=== PATIENT | female | born 1975 | race Caucasian/White ===

== ENCOUNTER 2023-01-30 09:09 | Emergency (ER) | payer OTHER, SELFPAY ==
[2023-01-30 09:17] VITALS: BP 144/91; PULSE 84; RESP 18; TEMP 36.4; O2SAT 97
--- NOTE | 2023-01-30 10:49 | ED.EYEPROB ---
HPI - Eye Problem General Chief complaint: Eye Problems Stated complaint: Blurry vision Time Seen by Provider: 01/30/23 10:25 Source: patient Mode of arrival: ambulatory Limitations: no limitations History of Present Illness HPI Narrative: This is a 47-year-old female who presents to the ED with chief concern of a possible stroke. She reports blurred vision intermittently for the past couple of years. She states in the last couple of days she has had headache of gradual onset. Reports it is located on both sides. She reports she has had some burning pains throughout the scalp as well. Denies LOC, head injury, trauma, nausea, vomiting, problems with ambulation, numbness, weakness. Patient states she is specifically here because she is afraid of having a stroke. Related Data Allergies Allergy/AdvReac Type Severity Reaction Status Date / Time latex Allergy Flushing Verified 01/30/23 09:11 Review of Systems Review of Systems: All systems as dictated in HPI Exam Narrative: GENERAL: Well-appearing, well-nourished, and in no acute distress. HEAD: Normocephalic, atraumatic. EYES: PERRLA and EOMI. ENT: Nares clear, no rhinorrhea or epistaxis. Mucous membranes moist. Oropharynx without tonsillar hypertrophy exudate or other lesions. NECK: Supple. No adenopathy or masses. CHEST: No respiratory distress. Clear to auscultation. No wheezes rales or rhonchi HEART: Regular rate and rhythm. No murmur heard. Normal peripheral pulses. ABDOMEN: Soft, nontender, nondistended, normal active bowel sounds. MSK: Normal range of motion. No edema. SKIN: Warm, dry, no rash. NEURO: Alert and oriented x3. No focal deficits. 5 out of 5 strength and sensation in the upper and lower extremities. Coordination intact. Normal finger-nose. Ambulatory without difficulty. Negative pronator drift. PSYCH: Normal mood and affect. Course Vital Signs Vital signs: Vital Signs Temperature 97.6 F 01/30/23 09:17 Pulse Rate 84 01/30/23 09:17 Respiratory Rate 18 01/30/23 09:17 Blood Pressure 144/91 H 01/30/23 09:17 Pulse Oximetry 97 01/30/23 09:17 Oxygen Delivery Room Air 01/30/23 09:17 Temperature 97.6 F 01/30/23 09:17 Pulse Rate 85 01/30/23 10:57 Respiratory Rate 20 01/30/23 10:57 Blood Pressure 140/88 01/30/23 10:57 Pulse Oximetry 100 01/30/23 10:57 Oxygen Delivery Room Air 01/30/23 09:17 MDM - Eye Problem MDM Narrative Medical decision making narrative: This is a 47-year-old female who presents to the ED with chief complaint of of blurred vision for the past 2 years and headache over the last couple of days. Vitals are normal. She is concerned because she was seen at the eye doctor recently who was concerned about her eye exam and told her that her blood pressure levels were at stroke levels. Her exam today is completely intact. Neurologic exam is fully normal. No concern for stroke. I discussed with the patient that her exam is normal and I do not feel that we need to gather imaging and she agrees with this plan. We also agreed to forego headache treatments as she would prefer to treat her headache at home. Symptoms and presentation consistent with her chronic decreasing visual acuity. Her problems seem to be more chronic in nature. Advised that she follow-up with PCP. She is recently moving from [place] and is trying to get in with a PCP now to adress BP. Referral given. Pt will be discharged in stable condition. Return precautions given and supportive measures discussed. Pt is understanding and agreeable with plan for discharge and follow-up with PCP. Discharge Plan Discharge Clinical Impression: Decreased visual acuity Patient Disposition: Home, Self-Care Condition: Stable Instructions: Antibiotic Form Additional Instructions: Your neurologic exam was fully intact today. It is important that you follow-up with your family doctor regarding potential problems with blood rodriguez
[2023-01-30 10:57] VITALS: BP 140/88; PULSE 85; RESP 20; O2SAT 100
== END 2023-01-30 10:58 | disposition home or self-care (01) ==
PROVIDERS: Emergency Provider Physician Assistant
DX: H53.8 Other visual disturbances (principal)
CPT/HCPCS: 99282

== ENCOUNTER 2023-02-10 10:06 | Outpatient (CLI) | payer OTHER, SELFPAY ==
[2023-02-10 11:39] LABS: Basophils Absolute Auto 0.1 K/mm3 (0.0-0.1); Basophils Percent Auto 0.7 % (0.2-1.2); Eosinophils Absolute Auto 0.3 K/mm3 (0-0.3); Eosinophils Percent Auto 2.3 % (0-4.4); Hematocrit 44.4 % (37.0-47.0); Hemoglobin 14.1 g/dL (12.0-15.0); Immature Granulocyte Absolute 0.06 K/mm3 (0.00-0.031); Immature Granulocyte Percent A 0.5 % (0-0.5); Lymphocytes Absolute Auto 2.67 K/mm3 (0.9-3.2); Lymphocytes Percent Auto 21.8 % (18.3-44.2); Mean Corpuscular HGB Conc 31.8 g/dl (32-36); Mean Corpuscular Hemoglobin 28.8 pg (26-34); Mean Corpuscular Volume 90.8 fl (80-100); Mean Platelet Volume 10.9 fl (7.4-10.4); Monocytes Absolute Auto 0.8 K/mm3 (0.1-0.6); Monocytes Percent Auto 6.4 % (2.6-8.5); Neutrophils Absolute Auto 8.4 K/mm3 (1.3-6.7); Neutrophils Percent Auto 68.3 % (45.5-73.1); Platelet Count Result 304 k/mm3 (150-375); Red Blood Count 4.89 M/mm3 (4.2-5.4); Red Cell Distribution Width 13.4 % (11.5-14.5); White Blood Count 12.3 K/mm3 (4.5-10.0)
[2023-02-10 11:57] LABS: Alanine Aminotransferase 46 U/L (6-35); Alkaline Phosphatase 123 U/L (38-126); Anion Gap 8 mmol/L (8-16); Aspartate Amino Transferase 84 U/L (14-36); Bilirubin,Total 0.7 mg/dL (0.2-1.3); Blood Urea Nitrogen 8 mg/dL (7-17); Calcium 9.3 mg/dL (8.4-10.2); Carbon Dioxide 31 mmol/L (22-30); Chloride 100 mmol/L (98-107); Cholesterol 254 mg/dL (0-200); Estimated Glomerular Filt Rate > 60; Glucose 149 mg/dL (65-110); HDL Direct 38 mg/dL; Potassium 4.4 mmol/L (3.4-5.0); Sodium 139 mmol/L (137-145); Triglycerides 187 mg/dL (<150)
[2023-02-10 12:08] LABS: LDL Cholesterol Direct 149 mg/dL
== END 2023-02-10 10:07 | disposition home or self-care (01) ==
LOC: ANHGOSHLAB 10:08
PROVIDERS: PCP Emergency Medicine; Visit Provider Emergency Medicine
DX: E66.01 Morbid (severe) obesity due to excess calories (principal); Z68.43 Body mass index [BMI] 50.0-59.9, adult; R53.83 Other fatigue; E55.9 Vitamin D deficiency, unspecified
CPT/HCPCS: 36415; 80053; 80061; 82306; 83036; 84443; 85025

== ENCOUNTER 2023-04-04 15:30 | Outpatient (RCR) | payer OTHER, SELFPAY ==
[2023-02-24 08:19] VITALS: BMI 52.9
[2023-02-24 08:20] VITALS: BMI 52.9
[2023-03-24 08:25] VITALS: BMI 49.8
[2023-03-24 08:27] VITALS: BMI 49.8
== END 2023-05-16 09:31 | disposition home or self-care (01) ==
LOC: ANHDMC 15:30
PROVIDERS: PCP Emergency Medicine; Visit Provider Emergency Medicine
DX: E11.69 Type 2 diabetes mellitus with other specified complication (principal); E66.9 Obesity, unspecified; Z71.3 Dietary counseling and surveillance; Z71.89 Other specified counseling
CPT/HCPCS: 97802; 97803; G0108

== ENCOUNTER 2023-05-04 07:53 | Outpatient (CLI) | payer OTHER, SELFPAY ==
[2023-05-04 12:58] LABS: Alanine Aminotransferase 19 U/L (6-35); Albumin Level 4.1 g/dL (3.5-5.1); Alkaline Phosphatase 124 U/L (38-126); Anion Gap 10 mmol/L (8-16); Aspartate Amino Transferase 33 U/L (14-36); Bilirubin,Total 0.5 mg/dL (0.2-1.3); Blood Urea Nitrogen 13 mg/dL (7-17); Calcium 9.2 mg/dL (8.4-10.2); Carbon Dioxide 28 mmol/L (22-30); Chloride 101 mmol/L (98-107); Estimated Glomerular Filt Rate > 60; Glucose 137 mg/dL (65-110); Potassium 4.3 mmol/L (3.4-5.0); Sodium 139 mmol/L (137-145)
[2023-05-04 15:45] LABS: Hemoglobin A1C 6.4 % (<5.7)
== END 2023-05-04 07:54 | disposition home or self-care (01) ==
LOC: ANHGOSHLAB 07:54
PROVIDERS: PCP Emergency Medicine; Visit Provider Emergency Medicine
DX: R74.8 Abnormal levels of other serum enzymes (principal); E66.9 Obesity, unspecified; E11.69 Type 2 diabetes mellitus with other specified complication
CPT/HCPCS: 36415; 80053; 83036

== ENCOUNTER 2023-05-20 08:22 | Outpatient (CLI) | payer OTHER, SELFPAY ==
--- NOTE | 2023-05-20 08:34 | ECG_ITS ---
Measurements Intervals [place] Rate: 88 P: 55 WA: 155 QRS: 40 QRSD: 91 T: 11 QT: 376 QTc: 455 Interpretive Statements SINUS RHYTHM NORMAL ELECTROCARDIOGRAM POSSIBLE LEFT ATRIAL ENLARGEMENT [-0.1mV P WAVE IN V1/V2] NO PREVIOUS ECG AVAILABLE FOR COMPARISON Electronically Signed On 05-20-2023 15:09:39 DEDICATED TRUCK [employer]IVER by Dillon Russ M.D.
== END 2023-05-20 08:23 | disposition home or self-care (01) ==
LOC: ANHSURGERY 08:28
PROVIDERS: PCP Emergency Medicine; Visit Provider Orthopaedic Surgery
DX: Z01.818 Encounter for other preprocedural examination (principal); E66.9 Obesity, unspecified; E11.69 Type 2 diabetes mellitus with other specified complication
CPT/HCPCS: 93005

== ENCOUNTER 2023-05-26 00:26 | Day surgery (SDC) | payer OTHER, SELFPAY ==
[2023-05-17 13:21] VITALS: BMI 48.8
--- NOTE | 2023-05-17 13:27 | PC.NURSE ---
Report to the Outpatient Waiting Room, entrance under the green pavilion located off [facility], at time 8:30 on date 05/26/23. Planned Procedure Time: 10:30. Time changes happen often and if your time is changed the preop area will call you the afternoon before. - You and your visitor will be asked to self-screen and do not enter if you have any COVID symptoms. - A mask is optional within the hospital at this time. Patients may have clear liquids (water, carbonated beverages, clear teas, apple juice) until 3 hours prior to surgery (7:30) with a maximum of 20 ounces. - No food from midnight until time of surgery Take the following medications with a SIP of water the morning of surgery: TYLENOL IF NEEDED DO NOT STOP ANY OF YOUR OTHER PRESCRIPTION MEDICATIONS PRIOR TO SURGERY ?EXCEPT THE FOLLOWING Medications to discontinue per physician: ASPIRIN (IN EXEDRIN), IBUPROFEN Date to take last dose: 05/18/23 VITAMINS - LAST DOSE 05/22/23 Please no make-up, nail dutch, hairspray, perfume, deodorant, or body powder the day of surgery. No jewelry (including any body piercings) or valuables the day of surgery, leave them at home. Please take a shower or bath the night before, or the morning of, surgery with an antibacterial soap. Wear comfortable, loose fitting clothing. - Jewelry must be removed prior to entering the operating room. Rings and piercings that are not removed may be cut off. - The hospital will not accept responsibility for valuables. - Please leave all valuables, including medications, at home the day of surgery. If you are going home after surgery, a licensed school bus driver must drive you home. - NO public transportation without another adult if you receive anesthesia. - We recommend that an adult stay with you for 24 hours following discharge. - We also recommend that you do not drive, make important decision, drink alcoholic beverages, or take any drugs that were not prescribed by your health care provider for at least 24 hours after your discharge time. Follow any additional instructions given to you from your surgeon. If you or anyone in your household have experienced Covid symptoms in the past week, please notify your surgeon or the nurse liaison at the phone number below for possible testing. Telephone instructions given to PT - ANI SEWELL and asked if any additional questions and then verbalized understanding. Patient advised to call surgeon office or pre surgery nurse liaison [phone] if any additional questions.
--- NOTE | 2023-05-25 14:30 | WPDANESEPPF ---
Anes - Initial Pre Proc Eval Procedure: Operation Date: 05/26/23 10:30 Proposed Procedures p Right Carpal Tunnel Release - Bruno Aleman MD Date/Time: 05/25/23 14:30 Surgeon: Bruno Aleman MD Pre Op Diagnosis: right carpal tunnel syndrome Patient Data Age: 47 Gender: F Height: 1.63 m Weight: 129 kg Allergies Allergy/AdvReac Type Severity Reaction Status Date / Time latex Allergy Flushing Verified 05/26/23 08:51 Home Medications Medication Instructions Recorded Confirmed Type qzqhzgn-meyoupselpvyw-jnenicyu 250 1 tablet PO Q4-6H PRN Migraine 02/10/23 05/26/23 History mg-250 mg-65 mg tablet (Excedrin Headache Extra Strength) omeprazole 20 mg-sodium 1 cap PO DAILY 02/10/23 05/26/23 History bicarbonate 1.1 gram capsule (Zegerid) atorvastatin 20 mg tablet (Lipitor) 20 mg PO QHS #30 tabs 02/11/23 05/26/23 Rx semaglutide 0.25 mg or 0.5 mg (2 0.5 mg (0.736 mL) subcut WEEKLY #3 04/05/23 05/26/23 Rx mg/3 mL) subcutaneous pen injector mL (Ozempic) ascorbic acid (vitamin C) 500 mg 500 mg PO DAILY 05/04/23 05/26/23 History chewable tablet amoxicillin 875 mg-potassium 1 tablet PO BID #14 tabs 05/10/23 05/26/23 Rx clavulanate 125 mg tablet lisinopril 20 mg tablet 20 mg PO DAILY #30 tabs 05/16/23 05/26/23 Rx acetaminophen 500 mg tablet 1,000 mg PO QID PRN Migraine 05/17/23 05/26/23 History Headache cholecalciferol (vitamin D3) 125 125 mcg PO DAILY 05/17/23 05/26/23 History mcg (5,000 unit) tablet (Vitamin D3) ibuprofen 600 mg tablet 600 mg PO TID PRN Migraine Headache 05/17/23 05/26/23 History hydrocodone 5 mg-acetaminophen 325 1 - 2 tablet PO Q4-6H PRN pain #30 05/26/23 Rx mg tablet tabs Patient hx anesthesia problems: none Family hx anesthesia problems: none Results Review: All pre-operative results and documents have been reviewed as part of the pre-operative evaluation. COUNTS INCLUDE 234 BEDS AT THE [facility] Past Medical History Medical History (Updated 05/26/23 @ 07:27 by LATOYA Dunlap) Diabetes mellitus type 2 in obese Elevated liver enzymes Hyperlipidemia AMARI (obstructive sleep apnea) Family History Family History Father Diabetes mellitus Sibling Diabetes mellitus Grandparent Diabetes mellitus Hypertension Heart disease Social History Social History Years smoked: 10 Smoking status: Current some day smoker Tobacco type: cigarettes Alcohol use details: VERY RARE Substance use: never Substance use type: does not use Living arrangements: with family Spiritual care concerns: No Anes - Eval Final PreProcedure Day of Procedure 05/25/23 14:30 Patient weight: morbidly obese Heart: regular rate and rhythm Lungs: clear to auscultation Airway: Mallampati scale class II Neurological: alert and oriented Last oral intake: >/= 8 hours ASA classification: III Emergent: no Anesthetic plan: proceed Anesthesia type and monitoring: general LMA and standard monitoring Results Review: All pre-operative results and documents have been reviewed as part of the pre-operative evaluation. Informed Consent: The patient's anesthetic plan and its attendant risks and benefits were discussed with the patient/family/POA. Questions were solicited and answers provided to the satisfaction of the patient/family/POA.
[2023-05-26] VITALS (10 sets, daily range): BP systolic 89–131; BP diastolic 46–84; PULSE 62–85; RESP 14–17; TEMP 36.6–37.1; O2SAT 93–100
[2023-05-26] MEDS: ACETAMINOPHEN 500 MG TABLET 1000 MG PO (09:05)
[2023-05-26 09:18] LABS: Glucose Point of Care 129 mg/dl (65-105)
[2023-05-26] MEDS: LACTATED RINGERS 1,000 ML 30 ML IV CONT ×2 (09:30→10:57)
[2023-05-26] MEDS: KETOROLAC 15 MG/ML VIAL (*BKC) IV PUSH (10:12)
--- NOTE | 2023-05-26 10:14 | WPDHPUPDATE1 ---
History and Physical Update Update Date/Time: 05/26/23 10:14 History and Physical has been reviewed, including an updated exam of the patient. There are NO changes in the patient's condition. Risks, benefits, and alternatives have been discussed and questions answered. Patient agrees to proceed with procedure.
[2023-05-26] MEDS: BUPIVACAINE/EPINEPHRINE 0.5% 50 ML VIAL INFILTRATE (10:32)
[2023-05-26 11:13] LABS: Glucose Point of Care 96 mg/dl (65-105)
--- NOTE | 2023-05-26 11:24 | P.OP_ITS ---
Procedure Note - Detailed Date of Procedure 05/26/23 Pre-op Diagnosis right carpal tunnel syndrome Post-op Diagnosis Same Procedure Performed Right carpal tunnel release Surgeon Bruno Aleman MD Anesthesia General Description of Procedure Operative details. After sedation was administer, the hand was prepped and draped in the usual sterile fashion. The proposed incision was marked using typical anatomic landmarks. 4ML 0.5% Marcaine with epinephrine was injected along the incision line and at the distal forearm. The limb was exsanguinated and the tourniquet inflated to 250 millimeters of mercury. A longitudinal incision was taken sharply. Dissection was brought down to the transverse carpal ligament. Under direct vision the ligament was incised sharply. The proximal release was carried out with dissection scissors. The contents of the carpal canal were protected with a [place] elevator. The transverse carpal ligament was confirmed to be widely patent. The wound was closed with interrupted 3-0 Prolene suture. A sterile bulky dressing was placed. Patient was brought to the recovery room in stable condition. Estimated Blood Loss 1 Tourniquet Time Total Tourniquet Time: 4 minutes Pathology None sent Complications No immediate complications Condition Stable Disposition PACU [facility] Billing Surgery - Charge Forward: Surgery Billing
== END 2023-05-26 13:05 | disposition home or self-care (01) ==
PROVIDERS: PCP Emergency Medicine; Visit Provider Orthopaedic Surgery
PROC: (CPT 64721; principal; 2023-05-26 10:30)
DX: G56.01 Carpal tunnel syndrome, right upper limb (principal); E78.5 Hyperlipidemia, unspecified; G47.33 Obstructive sleep apnea (adult) (pediatric); E11.9 Type 2 diabetes mellitus without complications; F17.210 Nicotine dependence, cigarettes, uncomplicated; E66.01 Morbid (severe) obesity due to excess calories; Z68.42 Body mass index [BMI] 45.0-49.9, adult; Z79.82 Long term (current) use of aspirin; Z79.891 Long term (current) use of opiate analgesic; Z79.85 Long-term (current) use of injectable non-insulin antidiabetic drugs; Z82.49 Family history of ischemic heart disease and other diseases of the circulatory system
CPT/HCPCS: 64721; 82948; 93005; A9270; J1100; J1885; J2250; J2405; J2704; J3010; J7120

== ENCOUNTER 2023-08-11 07:44 | Outpatient (CLI) | payer OTHER, SELFPAY | END 2023-08-11 07:45 | PROVIDERS: PCP Emergency Medicine; Visit Provider Emergency Medicine | DX: M25.562 Pain in left knee (principal) | CPT/HCPCS: 73564 ==

== ENCOUNTER 2023-08-11 08:17 | Outpatient (CLI) | payer OTHER, SELFPAY ==
[2023-08-11 12:47] LABS: Basophils Absolute Auto 0.1 K/mm3 (0.0-0.1); Basophils Percent Auto 0.7 % (0.2-1.2); Eosinophils Absolute Auto 0.3 K/mm3 (0-0.3); Eosinophils Percent Auto 2.1 % (0-4.4); Hematocrit 43.7 % (37.0-47.0); Hemoglobin 13.4 g/dL (12.0-15.0); Immature Granulocyte Absolute 0.07 K/mm3 (0.00-0.031); Immature Granulocyte Percent A 0.6 % (0-0.5); Lymphocytes Percent Auto 23.7 % (18.3-44.2); Mean Corpuscular HGB Conc 30.7 g/dl (32-36); Mean Corpuscular Hemoglobin 28.1 pg (26-34); Mean Corpuscular Volume 91.6 fl (80-100); Mean Platelet Volume 10.7 fl (7.4-10.4); Monocytes Absolute Auto 0.7 K/mm3 (0.1-0.6); Monocytes Percent Auto 5.7 % (2.6-8.5); Neutrophils Absolute Auto 8.2 K/mm3 (1.3-6.7); Neutrophils Percent Auto 67.2 % (45.5-73.1); Platelet Count Result 307 k/mm3 (150-375); Red Blood Count 4.77 M/mm3 (4.2-5.4); Red Cell Distribution Width 13.9 % (11.5-14.5); White Blood Count 12.2 K/mm3 (4.5-10.0)
[2023-08-11 12:54] LABS: Alanine Aminotransferase 17 U/L (6-35); Albumin Level 3.8 g/dL (3.5-5.1); Alkaline Phosphatase 113 U/L (38-126); Anion Gap 3 mmol/L (8-16); Aspartate Amino Transferase 33 U/L (14-36); Bilirubin,Total 0.5 mg/dL (0.2-1.3); Blood Urea Nitrogen 13 mg/dL (7-17); Calcium 9.5 mg/dL (8.4-10.2); Carbon Dioxide 30 mmol/L (22-30); Chloride 102 mmol/L (98-107); Cholesterol 192 mg/dL (0-200); Estimated Glomerular Filt Rate > 60; Glucose 131 mg/dL (65-110); HDL Direct 43 mg/dL; Potassium 4.4 mmol/L (3.4-5.0); Sodium 135 mmol/L (137-145); Triglycerides 174 mg/dL (<150)
[2023-08-11 13:05] LABS: LDL Cholesterol Direct 111 mg/dL
[2023-08-11 13:35] LABS: Hemoglobin A1C 6.7 % (<5.7)
== END 2023-08-11 08:18 | disposition home or self-care (01) ==
LOC: ANHGOSHLAB 08:19
PROVIDERS: PCP Emergency Medicine; Visit Provider Emergency Medicine
DX: D72.829 Elevated white blood cell count, unspecified (principal); E11.69 Type 2 diabetes mellitus with other specified complication; E66.9 Obesity, unspecified; Z68.43 Body mass index [BMI] 50.0-59.9, adult
CPT/HCPCS: 36415; 80053; 80061; 83036; 85025

== ENCOUNTER 2023-09-21 08:00 | Outpatient (RCR) | payer OTHER, SELFPAY ==
--- NOTE | 2023-08-16 10:04 | OPREHPOC ---
Outpatient Therapy Plan of Care This is a Multidisciplinary Plan of Care that may contain components documented by all disciplines (PT, OT, and ST.) PT Problem 1 PT Problem #1 Knowledge Deficit PT Goal 1 Goal Pt to be IND with issued HEP Target Visit 8 PT Problem 2 PT Problem #2 Pain PT Goal 1 Goal Pt to report pain no greater than 3/10 in the last week. Target Visit 8 PT Goal 2 Goal Pt to report 75% improvement in overall symptoms. Target Visit 8 PT Problem 3 PT Problem #3 Impaired Functional Mobil PT Goal 1 Goal Pt to ambulate stairs without compensations. Target Visit 8 PT Goal 2 Goal Pt to demonstrates a functional lift and carry with 20lb without an increase in symptoms. Target Visit 8 PT Problem 4 PT Problem #4 Impaired Gait PT Goal 1 Goal Pt to demonstrate a gait pattern that is without deviations. Target Visit 8 PT Goal 2 Goal Pt to improve 2 min walk distance from 415ft to 450ft. Target Visit 8
--- NOTE | 2023-08-16 10:04 | PTOPEVAL1 ---
Assessment and note entered by Svetlana Mcgill, PT, DPT Evaluation Information Assessment Status Evaluation Diagnosis L knee pain Onset 2 months Subjective Information Pt states about 2 months ago her knee started to hurt randomly. She states she was walking briskly and turned to go to her car quickly, she does not recall a pop or anything. She states she has been really favoring her knee since the pain started, it has gotten slightly better but is still limiting. She states it feels like her knee needs to pop. 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 Reported Pain Level Pain Score 5: Self Report Assessment PT Clinical Summary Jyotsna presents to therapy today for her initial evaluation with a diagnosis of L knee pain. Today she demonstrates good gross strength with decreased functional strength. She demonstrates tenderness to palpation and increased soft tissue density throughout her BLEs, with particular tenderness at the L medial joint line. She ambulates with an antalgic pattern favoring her LLE, she reports decreased walking tolerance d/t pain. Skilled therapy services are indicated to address the deficits noted above, to manage pain, and to return to PLOF. Plan of Care Interventions Electrical Stimulation,Gait Training,Hot Pack/Cold Pack,Manual Therapy,Neuro Re-education,Patient/ Caregiver Educati,Therapeutic Activities, Therapeutic Exercise PT Services Indicated Yes Treatment Frequency and 1-2x/wk for 8 visits Duration These treatments will address the objective and functional deficits as defined above. The patient will be advanced safely and appropriately in order for the patient to progress towards his/her prior level of function. Additional exercises will be introduced and as well as a comprehensive home exercise program upon discharge, if needed, ?to ensure carryover of functional gains achieved in the clinic. This treatment plan has been reviewed and agreement upon by the patient.
--- NOTE | 2023-09-21 09:56 | PTOPDC ---
Assessment and note entered by Svetlana Mcgill, PT, DPT Evaluation Information Assessment Status Discharge Diagnosis L knee pain Onset 2 months Subjective Information Pt states she is doing much better than when she started therapy. She states she still has some mild intermittent pain in the back of her knee. She states she has 13 stairs at home, she can go down the stairs normally, but still goes up with a non reciprocal pattern. Reported Pain Level Pain Score 2: Self Report Assessment PT Clinical Summary Jyotsna presents to therapy today for her progress report following 7 visits of skilled therapy to treat her diagnosis of L knee pain. Today she demonstrates good gross strength with improving functional strength, but still limited on her L compared to her R. She ambulates without gait deviations now. She is making good progress towards her therapy goals and would like to be discharged at this time to continue her HEP IND.
== END 2023-09-21 11:02 | disposition home or self-care (01) ==
LOC: ANHGOSHPT 08:00
PROVIDERS: PCP Emergency Medicine; Visit Provider Emergency Medicine
DX: M25.562 Pain in left knee (principal); M17.9 Osteoarthritis of knee, unspecified
CPT/HCPCS: 97014; 97110; 97140; 97161; 97530; G0283

== ENCOUNTER 2023-12-09 08:06 | Outpatient (CLI) | payer OTHER, SELFPAY ==
[2023-12-09 14:51] LABS: Hemoglobin A1C 6.4 % (<5.7)
[2023-12-09 14:52] LABS: Anion Gap 10 mmol/L (4-12); Blood Urea Nitrogen 15 mg/dL (7-17); Calcium 9.1 mg/dL (8.4-10.2); Carbon Dioxide 27 mmol/L (22-30); Chloride 103 mmol/L (98-107); Estimated Glomerular Filt Rate > 60; Glucose 87 mg/dL (65-110); Potassium 4.5 mmol/L (3.4-5.0); Sodium 140 mmol/L (137-145)
[2023-12-09 14:54] LABS: Rheumatoid Factor < 12.0 IU/ML (<12)
[2023-12-09 14:59] LABS: Creatinine Urine 78.7 mg/dL
[2023-12-09 15:21] LABS: Microalbumin Urine Random < 6.0 mg/L (0-16.7)
[2023-12-09 15:22] LABS: MALB Creatinine Ratio < 7.6 mg/g (0-30)
[2023-12-12 14:13] LABS: Anti Cyclic Citrullinated Pept <16 UNITS
== END 2023-12-09 08:07 | disposition home or self-care (01) ==
LOC: ANHGOSHLAB 08:06
PROVIDERS: PCP Emergency Medicine; Visit Provider Emergency Medicine
DX: M25.50 Pain in unspecified joint (principal); E11.69 Type 2 diabetes mellitus with other specified complication; E66.9 Obesity, unspecified
CPT/HCPCS: 36415; 80048; 82043; 83036; 86038; 86039; 86200; 86430

== ENCOUNTER 2023-12-10 07:10 | Outpatient (CLI) | payer OTHER, SELFPAY ==
--- NOTE | ~2023-12-10 | XR_ITS ---
EXAMINATION: XR knee LT min 4V DATE: 12/10/2023 07:32 INDICATION: Knee pain TECHNIQUE: Weight bearing anteroposterior and Espinoza, sunrise, and flexed lateral views of the lef t knee were obtained COMPARISON: None. FINDINGS: Alignment is normal. No fracture. Joint spaces are normal with no osteophytosis. No joint effusion/l ayering lipohemarthrosis. Soft tissues are unremarkable. IMPRESSION: 1. Negative left knee radiographs. Reviewed, dictated and finalized at location A.
== END 2023-12-10 07:11 | disposition home or self-care (01) ==
LOC: ANHIMG 07:12
PROVIDERS: PCP Emergency Medicine; Visit Provider Physician Assistant Surgical
DX: M25.562 Pain in left knee (principal)
CPT/HCPCS: 73564

== ENCOUNTER 2024-04-04 15:18 | Outpatient (CLI) | payer OTHER, SELFPAY ==
--- NOTE | ~2024-04-04 | MR_ITS ---
MRI of the left knee Clinical history: Pain Technique: Coronal proton density and proton density-weighted images, sagittal proton-density and T2 fat-sat images, and axial proton-density fat-saturated images were acquired. Findings: Anterior and posterior cruciate ligaments are intact. Medial collateral ligament and the la teral collateral ligament complex are intact. Popliteus tendon is intact. There is a large radial tear of the posterior root of the medial meniscus. Questionable extension of tear into the body segment. Lateral meniscus is intact. 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 There is mild chondromalacia of the femoral trochlea. There is high-grade chondromalacia at the medial joint line. There is mild chondral thinnin g at the lateral joint line. Extensor mechanism is intact. There is minimal joint effusion and minimal Evans's cyst. Impression: Large radial tear at the posterior root of the medial meniscus. Questionable extension of tear into t he body segment. Chondromalacia, as detailed above, worst at the patellar apex and medial joint line. Reviewed, dictated and finalized at location M. TITATIVE DEVELOPER Impression: Large radial tear at the posterior root of the medial meniscus. Questionable ex tension of tear into the body segment. Chondromalacia, as detailed above, worst at the patellar apex and medial joint line.
== END 2024-04-04 15:19 | disposition home or self-care (01) ==
LOC: GOSHIMG 15:19
PROVIDERS: PCP Orthopaedic Surgery; Visit Provider Orthopaedic Surgery
DX: S83.242A Other tear of medial meniscus, current injury, left knee, initial encounter (principal); M94.262 Chondromalacia, left knee; X58.XXXA Exposure to other specified factors, initial encounter
CPT/HCPCS: 73721

== ENCOUNTER 2024-05-18 07:58 | Outpatient (CLI) | payer OTHER, SELFPAY ==
--- NOTE | 2024-05-18 08:20 | ECG_ITS ---
Test Date: 2024-05-18 08:35:47 Measurements Intervals [place] Rate: 79 P: 52 CO: 165 QRS: 38 QRSD: 89 T: 22 QT: 392 QTc: 450 Interpretive Statements SINUS RHYTHM No previous ECG available for comparison Electronically Signed On 05-18-2024 12:21:43 VP ANALYSIS by Mary Valdez M.D.
[2024-05-18 09:31] LABS: Anion Gap 5 mmol/L (4-12); Blood Urea Nitrogen 17 mg/dL (7-17); Calcium 9.3 mg/dL (8.4-10.2); Carbon Dioxide 29 mmol/L (22-30); Chloride 105 mmol/L (98-107); Estimated Glomerular Filt Rate > 60; Glucose 118 mg/dL (65-110); Potassium 4.3 mmol/L (3.4-5.0); Sodium 139 mmol/L (137-145)
== END 2024-05-18 07:59 | disposition home or self-care (01) ==
LOC: ANHSURGERY 08:04
PROVIDERS: Anesthesiology; PCP Emergency Medicine; Visit Provider Orthopaedic Surgery
DX: Z01.818 Encounter for other preprocedural examination (principal); E11.69 Type 2 diabetes mellitus with other specified complication; E78.5 Hyperlipidemia, unspecified
CPT/HCPCS: 36415; 80048; 93005

== ENCOUNTER 2024-05-28 00:01 | Day surgery (SDC) | payer OTHER, SELFPAY ==
[2024-05-16 14:46] VITALS: BMI 48.4
--- NOTE | 2024-05-16 14:58 | PC.NURSE ---
Addendum entered by Janny Santos RN 05/16/24 15:11: PT INSTRUCTED TO STOP VITAMINS 3 DAYS PRIOR TO SURGERY Original Note: Report to the Outpatient Waiting Room, entrance under the green pavilion located off [facility], at time 1300_ on date 05/28/24. Planned Procedure Time: 1500.? Time changes happen often and if your time is changed the preop area will call you the afternoon before. - You and your visitor will be asked to self-screen and do not enter if you have any COVID symptoms. Please call surgeon if you need to reschedule. - A mask is optional within the hospital at this time. Patients may have clear liquids (water, carbonated beverages, clear teas, apple juice) until 3 hours prior to surgery with a maximum of 20 ounces. - No food from midnight until time of surgery and no smoking. This includes no chewing gum, candy or mints. - Infants may have breast milk until 4 hours before surgery, formula 6 hours prior to surgery. - Children will be allowed to drink immediately following surgery.? If applicable, please bring a bottle or sippy cup to assist with drinking. Juice, water, soda, and popsicles are readily available.? For infants on formula, please bring formula the day of surgery.? Pacifiers are allowed. Take only the following medications with a SIP of water on the morning of surgery: ____NONE DO NOT STOP ANY OF YOUR OTHER PRESCRIPTION MEDICATIONS PRIOR TO SURGERY EXCEPT THE FOLLOWING Medications to discontinue per physician ____MELOXICAM 1 WEEK PRIOR PER GABRIEL PT LAST DOSE OF MOUJARO 05/07/24 Date to take last dose Please no make-up, nail argentine, hairspray, perfume, deodorant, or body powder the day of surgery.? No jewelry (including any body piercings) or valuables the day of surgery, leave them at home.? Please take a shower or bath the night before, or the morning of, surgery with an antibacterial soap.? Wear comfortable, loose fitting clothing.? Children are encouraged to wear pajamas. - Jewelry must be removed prior to entering the operating room.? Rings and piercings that are not removed may be cut off. - The hospital will not accept responsibility for valuables.? - Please leave all valuables, including medications, at home the day of surgery. If you are going home after surgery, a licensed motor driver must drive you home.? - NO public transportation without another adult if you receive anesthesia. - We recommend that an adult stay with you for 24 hours following discharge. - We also recommend that you do not drive, make important decision, drink alcoholic beverages, or take any drugs that were not prescribed by your health care provider for at least 24 hours after your discharge time. For Pediatric surgeries, we recommend two adults accompany the child home. Follow any additional instructions given to you from your surgeon. Telephone instructions given to __PATIENT_and asked if any additional questions and then verbalized understanding. Patient advised to call surgeon office or pre surgery nurse liaison [phone] if any additional questions.
[2024-05-28] VITALS (8 sets, daily range): BP systolic 131–156; BP diastolic 80–95; PULSE 69–89; RESP 12–18; TEMP 36.3–36.6; O2SAT 92–100; BMI 49.9
--- NOTE | 2024-05-28 09:07 | WPDANESEPPF ---
Anes - Initial Pre Proc Eval Procedure: Operation Date: 05/28/24 15:00 Proposed Procedures p Left Knee Arthroscopic Possible Medial Meniscectomy - Bruno Aleman MD Date/Time: 05/28/24 09:07 Surgeon: Bruno Aleman MD Pre Op Diagnosis: Lt Knee Medial Meniscus Tear Patient Data Age: 48 Gender: F Height: 1.63 m Weight: 128 kg Allergies Allergy/AdvReac Type Severity Reaction Status Date / Time latex Allergy Flushing Verified 05/16/24 14:42 Home Medications ?Medication ?Instructions ?Recorded ?Confirmed ?Type omeprazole 20 mg-sodium 1 cap PO DAILY 02/10/23 05/16/24 History bicarbonate 1.1 gram capsule (Zegerid) ascorbic acid (vitamin C) 500 mg 500 mg PO DAILY 05/04/23 05/16/24 History chewable tablet acetaminophen 500 mg tablet 1,000 mg PO QID PRN Migraine 05/17/23 05/16/24 History Headache cholecalciferol (vitamin D3) 125 125 mcg PO DAILY 05/17/23 05/16/24 History mcg (5,000 unit) tablet (Vitamin D3) atorvastatin 20 mg tablet (Lipitor) 20 mg PO QHS #30 tabs 08/05/23 05/16/24 Rx lisinopril 20 mg tablet 20 mg PO DAILY #90 tabs 09/02/23 05/16/24 Rx meloxicam 15 mg tablet 15 mg PO DAILY #90 tabs 03/01/24 05/16/24 Rx tirzepatide 5 mg/0.5 mL 5 mg (0.5 mL) subcut WEEKLY #2 mL 04/04/24 05/16/24 Rx subcutaneous pen injector (Mylesunlorainero) aspirin 81 mg tablet,delayed 81 mg PO BID 14 days #28 tabs 05/28/24 Rx release hydrocodone 5 mg-acetaminophen 325 1 - 2 tablet PO Q4-6H PRN pain 7 05/28/24 Rx mg tablet days #30 tabs meloxicam 15 mg tablet 15 mg PO DAILY #30 tabs 05/28/24 Rx Patient hx anesthesia problems: none Family hx anesthesia problems: none Results Review: All pre-operative results and documents have been reviewed as part of the pre-operative evaluation. [facility] Past Medical History Medical History (Updated 12/30/24 @ 09:07 by Jacob Worthington DO) Hypertension AMARI (obstructive sleep apnea) Hyperlipidemia Elevated liver enzymes Diabetes mellitus type 2 in obese Surgical History Surgical History History of carpal tunnel release (~05/26/23) Rt Family History Family History Father Diabetes mellitus Sibling Diabetes mellitus Grandparent Diabetes mellitus Hypertension Heart disease Social History Social History Smoking packs per day: 0.25 Smoking cigarettes per day: 5.0 Years smoked: 10 Smoking pack-years: 2.50 Smoking status: Current some day smoker Tobacco type: cigarettes Smoking end date: 05/21/23 Alcohol intake: current Alcohol use details: 1-2 PER MONTH Substance use: never Substance use type: does not use Do You Feel Safe in your Home?: Yes Lack of Transportation: No Lack of Food: Never True Current Housing: I Have Housing Concerned About Future Housing: No Difficulty Paying Gas/Electric Bills: No Difficulty Paying for Meds: No Currently Unemployed: No Education: High School Diploma/GED Difficulty w/ Childcare or Family Care: No Living arrangements: with family Spiritual care concerns: No Anes - Eval Final PreProcedure Day of Procedure 05/28/24 09:07 Patient weight: morbidly obese Heart: regular rate and rhythm Lungs: clear to auscultation Airway: Mallampati scale class II Neurological: alert and oriented Last oral intake: >/= 8 hours ASA classification: III Emergent: no Anesthetic plan: proceed Anesthesia type and monitoring: general LMA and standard monitoring Results Review: All pre-operative results and documents have been reviewed as part of the pre-operative evaluation. Informed Consent: The patient's anesthetic plan and its attendant risks and benefits were discussed with the patient/family/POA. Questions were solicited and answers provided to the satisfaction of the patient/family/POA.
--- NOTE | 2024-05-28 10:21 | WPDHPUPDATE1 ---
History and Physical Update Update Date/Time: 05/28/24 10:21 History and Physical has been reviewed, including an updated exam of the patient. There are NO changes in the patient's condition. Risks, benefits, and alternatives have been discussed and questions answered. Patient agrees to proceed with procedure.
--- NOTE | 2024-05-28 13:24 | P.HP_ITS ---
History of Present Illness History of Present Illness Consent: Risks, benefits, and alternatives have been discussed and questions answered. Patient agrees to proceed with procedure. Chief complaint: Lt Knee Medial Meniscus Tear Narrative: Jyotsna Collins is a 48 year old female who complains of persistent sharp severe pains that come and go. At times she has to use a wheelchair. She is using a cane. She has associated back pain from limping. Severe pain since May. She felt a pop when walking out of work on 12/09/23. She states she twisted it. She notes her knee is swollen and she is having difficulty bearing weight. No known injury. She went to therapy in July and the knee got better. She has been icing, elevating, and doing stretching exercises. Severe pain with twisting motions. Feels pressure in the knee. Pain is anterior. Constant sorenes s. No numbness or tingling. She notes that she has pain all over and is in the middle of being worked up for rheumatologic disorders. She notes catching symptoms. Treatments: NSAIDs: Yes. Some benefit. Injections: Yes with good temporary benefit. PT: Yes. August and July 2023. 8 sessions. Previous surgeries on knee: No Review of Systems Review of Systems: All systems reviewed & are unremarkable except as noted in HPI and below PMFSH Past Medical History Medical History Hypertension AMARI (obstructive sleep apnea) Hyperlipidemia Elevated liver enzymes Diabetes mellitus type 2 in obese Surgical History Surgical History History of carpal tunnel release (~05/26/23) Rt Family History Family History Father Diabetes mellitus Sibling Diabetes mellitus Grandparent Diabetes mellitus Hypertension Heart disease Social History Social History Smoking packs per day: 0.25 Smoking cigarettes per day: 5.0 Years smoked: 10 Smoking pack-years: 2.50 Smoking status: Current some day smoker Tobacco type: cigarettes Smoking end date: 05/21/23 Alcohol intake: current Alcohol use details: 1-2 PER MONTH Substance use: never Substance use type: does not use Do You Feel Safe in your Home?: Yes Lack of Transportation: No Lack of Food: Never True Current Housing: I Have Housing Concerned About Future Housing: No Difficulty Paying Gas/Electric Bills: No Difficulty Paying for Meds: No Currently Unemployed: No Education: High School Diploma/GED Difficulty w/ Childcare or Family Care: No Living arrangements: with family Spiritual care concerns: No Meds Home Medications and Allergies Home Medications ?Medication ?Instructions ?Recorded ?Confirmed ?Type omeprazole 20 mg-sodium 1 cap PO DAILY 02/10/23 05/28/24 History bicarbonate 1.1 gram capsule (Zegerid) ascorbic acid (vitamin C) 500 mg 500 mg PO DAILY 05/04/23 05/16/24 History chewable tablet acetaminophen 500 mg tablet 1,000 mg PO QID PRN Migraine 05/17/23 05/16/24 History Headache cholecalciferol (vitamin D3) 125 125 mcg PO DAILY 05/17/23 05/16/24 History mcg (5,000 unit) tablet (Vitamin D3) atorvastatin 20 mg tablet (Lipitor) 20 mg PO QHS #30 tabs 08/05/23 05/28/24 Rx lisinopril 20 mg tablet 20 mg PO DAILY #90 tabs 09/02/23 05/28/24 Rx meloxicam 15 mg tablet 15 mg PO DAILY #90 tabs 03/01/24 05/28/24 Rx tirzepatide 5 mg/0.5 mL 5 mg (0.5 mL) subcut WEEKLY #2 mL 04/04/24 05/16/24 Rx subcutaneous pen injector (Zainab) aspirin 81 mg tablet,delayed 81 mg PO BID 14 days #28 tabs 05/28/24 Rx release hydrocodone 5 mg-acetaminophen 325 1 - 2 tablet PO Q4-6H PRN pain 7 05/28/24 Rx mg tablet days #30 tabs meloxicam 15 mg tablet 15 mg PO DAILY #30 tabs 05/28/24 Rx Allergies Allergy/AdvReac Type Severity Reaction Status Date / Time latex Allergy Flushing Verified 05/28/24 13:46 Vital Signs Vital Signs - 24 hr 05/28/24 14:40 05/28/24 14:54 05/28/24 15:10 Temperature 36.3 C L Pulse Rate 89 80 79 Respiratory Rate 14 14 14 Blood Pressure 152/81 H 152/87 H 135/80 Pulse Oximetry 100 94 93 Oxygen Delivery Simple Face Mask Room Air Room Air Oxygen Flow Rate 8 05/28/24 15:25 05/28/24 15:30 05/28/24 16:00 Temperature Pulse Rate 81 70 69 Respiratory Rate 12 16 16 Blood Pressure 153/82 H 156/87 H 131/95 H Pulse Oximetry 92 Oxygen Delivery Room Air Oxygen Flow Rate 05/28/24 16:26 Temperature Pulse Rate 69 Respiratory Rate 16 Blood Pressure 140/81 Pulse Oximetry Oxygen Delivery Oxygen Flow Rate Exam Narrative: Alert and oriented x3. Overweight 48 y/o female. Ambulating with limp. No varus or valgus deformity. No distal edema. Mild synovitis and swelling. No ecchymosis. Small joint effusion. No warmth or erythema. Tenderness over the medial joint line. Peripatellar tenderness. Range of motion 0? to 135?. Pain with hyperflexion. Positive Sandra's test. ACL and PCL intact. Negative anterior drawer, posterior drawer and Leland's. MCL and LCL intact. No laxity with valgus or varus stress. No instability. Patella: Normal Q-angle, no instability, normal passive patellar tilt. Patellar crepitus. No varicosities. Distal pulses palpable. Normal light touch sensation. No skin lesions. Diagnostics Outside radiographs taken 08/11/23 and 12/10/23 reviewed personally. Mild medial joint line narrowing. Minimal tricompartment degenerative changes. MRI shows extensive tearing of the posterior medial meniscus. Evidence for significant unstable parrot-beak flap. Assessment and Plan Assessment and plan (1) Tear of medial meniscus of left knee: Qualifiers: Tear current or old: current Encounter type: initial encounter Meniscus tear of knee type: unspecified type Qualified Code(s): S83.242A - Other tear of medial meniscus, current injury, left knee, initial encounter Code(s): S83.242A - Other tear of medial meniscus, current injury, left knee, initial encounter Status: Acute Plan Left knee symptomatic medial meniscus tear. Extensive parrot-beak tear responsible for severe mechanical symptoms. Failed conservative treatment including physical therapy and injections. Plan off work about 1-2 weeks. We discussed operative and non-operative options in detail. We reviewed the expected results and typical recovery after surgery. Proceed with arthroscopic partial medial meniscectomy. Risks, benefits, and alternatives discussed.
[2024-05-28] MEDS: LIDO 1%/EPINEPHRINE 1:100,000 20 ML VIAL 30 ML INFILTRATE (13:30)
[2024-05-28] MEDS: diphenhydrAMINE HCl INJ 50 MG/ML VIAL 12.5 MG IV PUSH (13:36)
[2024-05-28] MEDS: ACETAMINOPHEN 500 MG TABLET 1000 MG PO (13:39)
[2024-05-28] MEDS: KETOROLAC 15 MG/ML VIAL (*BKC) IV PUSH (13:39)
[2024-05-28] MEDS: LACTATED RINGERS 1,000 ML 30 ML IV CONT (13:40)
[2024-05-28 13:45] LABS: Glucose Point of Care 96 mg/dl (65-105)
[2024-05-28] MEDS: ceFAZolin 3 GM/D5W 100 ML 100 ML IVPB (13:48)
--- NOTE | 2024-05-28 14:42 | W.PM.PROC2 ---
Procedure Note - Detailed Date of Procedure 05/28/24 Pre-op Diagnosis Lt Knee Medial Meniscus Tear Post-op Diagnosis Same Procedure Performed Arthroscopic partial medial meniscectomy, with femoral chondroplasty, left knee. Surgeon Bruno Almean MD Anesthesia General Findings Posterior horn radial split with posterior horn degeneration. Partial meniscectomy performed. Significant areas of chondromalacia predominantly on the medial femoral condyle and trochlea. Medial femur chondromalacia grade 3, medial tibia grade 2. Lateral femur chondromalacia grade 0 , lateral tibia grade 0. Patellar grade 1, trochlea grade 3. ACL intact. Description of Procedure The patient was identified and the surgical site confirmed and signed in the preoperative holding area. Antibiotics were started per protocol, and the patient was brought to the operative room and transferred to the OR table. A general anesthetic was administered. Supine position with the operative lower extremity position in the leg luis after placement of a well padded tourniquet. The leg support was lowered and the contralateral limb was supported with a soft bolster. The knee was prepped and draped in the usual sterile fashion. A time-out was performed. The portal sites were marked and infiltrated with 0.5% Marcaine 20 mL. The limb was exsanguinated and the tourniquet inflated to 300 mL Hg. Standard inferolateral and inferomedial portals were established. Inflow was obtained with the saline pump. The camera was introduced. Diagnostic inspection of the joint was accomplished. The meniscus was debrided with the arthroscopic shaver and punches until stable. The radiofrequency probe was also used for further d?bridement. Gentle chondroplasty performed on the medial femoral condyle and trochlea. The arthroscopic instruments were removed. The tourniquet released and wounds closed with subcutaneous 4-0 Monocryl absorbable suture. Steri strips and a sterile dressing were applied. A light elastic wrap was placed. The patient was extubated and brought to the recovery room in stable condition. Estimated Blood Loss 5 Drains No Complications No immediate complications Condition Stable Disposition PACU [facility] Billing Surgery - Charge Forward: Surgery Billing
[2024-05-28 14:50] LABS: Glucose Point of Care 98 mg/dl (65-105)
[2024-05-28] MEDS: fentaNYL CITRATE INJ (*CRX) 100 MCG/2 ML VIAL 25 MCG IV PUSH ×4 (14:57→15:18)
[2024-05-28] MEDS: oxyCODONE HCL (*CRX) 5 MG TAB IR PO (15:54)
== END 2024-05-28 16:39 | disposition home or self-care (01) ==
PROVIDERS: PCP Emergency Medicine; Visit Provider Orthopaedic Surgery
PROC: (CPT 29870; principal; 2024-05-28 15:00)
DX: S83.242A Other tear of medial meniscus, current injury, left knee, initial encounter (principal); M94.262 Chondromalacia, left knee; E78.5 Hyperlipidemia, unspecified; I10 Essential (primary) hypertension; E11.9 Type 2 diabetes mellitus without complications; G47.33 Obstructive sleep apnea (adult) (pediatric); F17.210 Nicotine dependence, cigarettes, uncomplicated; X58.XXXA Exposure to other specified factors, initial encounter; E66.01 Morbid (severe) obesity due to excess calories; Z68.43 Body mass index [BMI] 50.0-59.9, adult; Z79.85 Long-term (current) use of injectable non-insulin antidiabetic drugs; Z79.82 Long term (current) use of aspirin; Z79.891 Long term (current) use of opiate analgesic; Z98.890 Other specified postprocedural states; Z82.49 Family history of ischemic heart disease and other diseases of the circulatory system
CPT/HCPCS: 29881; 82948; A9270; J0690; J1200; J1885; J2003; J2004; J2250; J2405; J2704; J3010; J7120

== ENCOUNTER 2024-06-29 09:39 | Outpatient (CLI) | payer OTHER, SELFPAY ==
[2024-06-29 13:35] LABS: Hematocrit 43.3 % (37.0-47.0); Hemoglobin 13.7 g/dL (12.0-15.0); Mean Corpuscular HGB Conc 31.6 g/dl (32-36); Mean Corpuscular Hemoglobin 28.4 pg (26-34); Mean Corpuscular Volume 89.8 fl (80-100); Mean Platelet Volume 11.1 fl (7.4-10.4); Platelet Count Result 286 k/mm3 (150-375); Red Blood Count 4.82 M/mm3 (4.2-5.4); Red Cell Distribution Width 13.3 % (11.5-14.5); White Blood Count 10.2 K/mm3 (4.5-10.0)
[2024-06-29 13:40] LABS: Alanine Aminotransferase 20 U/L (6-35); Alkaline Phosphatase 114 U/L (38-126); Anion Gap 10 mmol/L (4-12); Aspartate Amino Transferase 24 U/L (14-36); Bilirubin,Total 0.5 mg/dL (0.2-1.3); Blood Urea Nitrogen 24 mg/dL (7-17); Carbon Dioxide 29 mmol/L (22-30); Chloride 102 mmol/L (98-107); Cholesterol 232 mg/dL (0-200); Estimated Glomerular Filt Rate > 60; Glucose 100 mg/dL (65-110); HDL Direct 46 mg/dL; Potassium 5.1 mmol/L (3.4-5.0); Sodium 141 mmol/L (137-145); Triglycerides 158 mg/dL (<150)
[2024-06-29 13:51] LABS: LDL Cholesterol Direct 141 mg/dL
[2024-06-29 14:51] LABS: Hemoglobin A1C 6.3 % (<5.7)
[2024-07-04 18:33] LABS: Vitamin D 1,25 (OH)2 Total 12 pg/mL (18-72); Vitamin D2 1,25 (OH)2 <8 pg/mL; Vitamin D3 1,25 (OH)2 12 pg/mL
== END 2024-06-29 09:40 | disposition home or self-care (01) ==
LOC: ANHGOSHLAB 09:40
PROVIDERS: PCP Family Medicine; Visit Provider Family Medicine
DX: E78.2 Mixed hyperlipidemia (principal); E11.69 Type 2 diabetes mellitus with other specified complication; E66.9 Obesity, unspecified; E55.9 Vitamin D deficiency, unspecified; E66.01 Morbid (severe) obesity due to excess calories; Z68.43 Body mass index [BMI] 50.0-59.9, adult
CPT/HCPCS: 36415; 80053; 80061; 82652; 83036; 84443; 85027

== ENCOUNTER 2024-09-17 08:08 | Outpatient (CLI) | payer OTHER, SELFPAY ==
[2024-09-17 13:47] LABS: Hematocrit 43.4 % (37.0-47.0); Hemoglobin 13.2 g/dL (12.0-15.0); Mean Corpuscular HGB Conc 30.4 g/dl (32-36); Mean Corpuscular Hemoglobin 28.3 pg (26-34); Mean Corpuscular Volume 92.9 fl (80-100); Mean Platelet Volume 10.7 fl (7.4-10.4); Platelet Count Result 302 k/mm3 (150-375); Red Blood Count 4.67 M/mm3 (4.2-5.4); White Blood Count 9.8 K/mm3 (4.5-10.0)
[2024-09-17 13:58] LABS: Alanine Aminotransferase 18 U/L (6-35); Albumin Level 4.1 g/dL (3.5-5.1); Alkaline Phosphatase 115 U/L (38-126); Anion Gap 7 mmol/L (4-12); Aspartate Amino Transferase 43 U/L (14-36); Bilirubin,Total 0.4 mg/dL (0.2-1.3); Blood Urea Nitrogen 15 mg/dL (7-17); Calcium 9.1 mg/dL (8.4-10.2); Carbon Dioxide 26 mmol/L (22-30); Chloride 103 mmol/L (98-107); Cholesterol 272 mg/dL (0-200); Estimated Glomerular Filt Rate > 60; Glucose 101 mg/dL (65-110); HDL Direct 48 mg/dL; Potassium 5.1 mmol/L (3.4-5.0); Sodium 136 mmol/L (137-145); Triglycerides 191 mg/dL (<150)
[2024-09-17 14:08] LABS: LDL Cholesterol Direct 143 mg/dL
[2024-09-17 14:45] LABS: Microalbumin Urine Random 64.7 mg/L (0-16.7)
[2024-09-17 14:49] LABS: Creatinine Urine 211.7 mg/dL; MALB Creatinine Ratio 30.6 mg/g (0-30)
[2024-09-17 15:43] LABS: Hemoglobin A1C 6.1 % (<5.7)
== END 2024-09-17 08:09 | disposition home or self-care (01) ==
LOC: ANHGOSHLAB 08:09
PROVIDERS: PCP Emergency Medicine; Visit Provider Family Medicine
DX: E78.2 Mixed hyperlipidemia (principal); E11.69 Type 2 diabetes mellitus with other specified complication; E66.9 Obesity, unspecified; E55.9 Vitamin D deficiency, unspecified; E66.01 Morbid (severe) obesity due to excess calories; Z68.43 Body mass index [BMI] 50.0-59.9, adult
CPT/HCPCS: 36415; 80053; 80061; 82043; 82652; 83036; 84443; 85027

== ENCOUNTER 2024-12-03 00:17 | Day surgery (SDC) | payer OTHER, SELFPAY ==
[2024-11-09 10:34] VITALS: BMI 51.5
[2024-12-03 06:27] VITALS: BP 141/95; PULSE 99; RESP 20; TEMP 36.3; O2SAT 97; BMI 49.2
[2024-12-03] MEDS: LACTATED RINGERS 1,000 ML 150 ML IV CONT (07:08)
--- NOTE | 2024-12-03 07:23 | P.PNAN_ITS ---
Anes - Initial Pre Proc Eval Procedure: Operation Date: 12/03/24 07:30 Proposed Procedures p Screening Colonoscopy - Mateus May MD Date/Time: 12/03/24 07:23 Surgeon: Mateus May MD Pre Op Diagnosis: malignant neoplasm of colon Patient Data Age: 49 Gender: F Height: 1.63 m Weight: 130.2 kg Last Vital Signs Temp 97.4 F L 12/03/24 06:27 Pulse 99 12/03/24 06:27 Resp 20 12/03/24 06:27 BP 141/95 H 12/03/24 06:27 Pulse Ox 97 12/03/24 06:27 O2 Del Method Room Air 12/03/24 06:27 Allergies Allergy/AdvReac Type Severity Reaction Status Date / Time latex Allergy Flushing Verified 12/03/24 06:21 Home Medications ?Medication ?Instructions ?Recorded ?Confirmed ?Type omeprazole 20 mg-sodium 1 cap PO DAILY 02/10/23 11/09/24 History bicarbonate 1.1 gram capsule (Zegerid) acetaminophen 500 mg tablet 1,000 mg PO QID PRN Migraine 05/17/23 11/09/24 History Headache lisinopril 20 mg tablet 20 mg PO DAILY #90 tabs 06/07/24 11/09/24 Rx ergocalciferol (vitamin D2) 1,250 1,250 mcg PO WEEKLY #12 caps 07/06/24 11/09/24 Rx mcg (50,000 unit) capsule (Vitamin D2) cyclobenzaprine 10 mg tablet 10 mg PO TID PRN muscle spasm #30 10/29/24 11/09/24 Rx tabs rosuvastatin 5 mg tablet 5 mg PO DAILY #90 tabs 10/29/24 11/09/24 Rx tirzepatide 7.5 mg/0.5 mL 7.5 mg (0.5 mL) subcut WEEKLY #2 mL 11/28/24 Rx subcutaneous pen injector (Mounjaro) Laboratory Tests 12/03/24 06:34 POC Capillary Glucose 117 H mg/dl (65-105) Patient hx anesthesia problems: none Family hx anesthesia problems: none Results Review: All pre-operative results and documents have been reviewed as part of the pre- operative evaluation. [facility] Past Medical History Medical History Hypertension AMARI (obstructive sleep apnea) Hyperlipidemia Elevated liver enzymes Diabetes mellitus type 2 in obese Surgical History Surgical History Status post arthroscopic partial medial meniscectomy of left knee (~05/28/24) History of carpal tunnel release (~05/26/23) Rt Family History Family History Father Diabetes mellitus Sibling Diabetes mellitus Grandparent Diabetes mellitus Hypertension Heart disease Social History Social History Smoking packs per day: 0.25 Smoking cigarettes per day: 5.0 Years smoked: 10 Smoking pack-years: 2.50 Smoking status: Current some day smoker Tobacco type: cigarettes Smoking end date: 05/21/23 Alcohol intake: current Alcohol use details: 1-2 PER MONTH Substance use: never Substance use type: does not use Do You Feel Safe in your Home?: Yes Lack of Transportation: No Lack of Food: Never True Current Housing: I Have Housing Concerned About Future Housing: No Difficulty Paying Gas/Electric Bills: No Difficulty Paying for Meds: No Currently Unemployed: No Education: High School Diploma/GED Difficulty w/ Childcare or Family Care: No Living arrangements: with family Spiritual care concerns: No Anes - Eval Final PreProcedure Day of Procedure 12/03/24 07:23 Patient weight: super morbidly obese Heart: regular rate and rhythm Lungs: clear to auscultation Airway: Mallampati scale class III Neurological: alert and oriented Last oral intake: >/= 8 hours ASA classification: III Emergent: no Anesthetic plan: proceed Anesthesia type and monitoring: general GIVS and standard monitoring Results Review: All pre-operative results and documents have been reviewed as part of the pre- operative evaluation. Informed Consent: The patient's anesthetic plan and its attendant risks and benefits were discussed with the patient/family/POA. Questions were solicited and answers provided to the satisfaction of the patient/family/POA.
--- NOTE | 2024-12-03 07:27 | PM.IMHP ---
H&P: HPI History of Present Illness Date/Time: 12/03/24 07:27 Chief Complaint: Screening colonoscopy Narrative: This is the patient's first colonoscopy. There are no GI symptoms and there is no family history of colorectal cancer. Review of Systems Review of Systems: All systems reviewed & are unremarkable except as noted in HPI and below PMFSH Past Medical History Medical History Hypertension AMARI (obstructive sleep apnea) Hyperlipidemia Elevated liver enzymes Diabetes mellitus type 2 in obese Surgical History Surgical History Status post arthroscopic partial medial meniscectomy of left knee (~05/28/24) History of carpal tunnel release (~05/26/23) Rt Family History Family History Father Diabetes mellitus Sibling Diabetes mellitus Grandparent Diabetes mellitus Hypertension Heart disease Social History Social History Smoking packs per day: 0.25 Smoking cigarettes per day: 5.0 Years smoked: 10 Smoking pack-years: 2.50 Smoking status: Current some day smoker Tobacco type: cigarettes Smoking end date: 05/21/23 Alcohol intake: current Alcohol use details: 1-2 PER MONTH Substance use: never Substance use type: does not use Do You Feel Safe in your Home?: Yes Lack of Transportation: No Lack of Food: Never True Current Housing: I Have Housing Concerned About Future Housing: No Difficulty Paying Gas/Electric Bills: No Difficulty Paying for Meds: No Currently Unemployed: No Education: High School Diploma/GED Difficulty w/ Childcare or Family Care: No Living arrangements: with family Spiritual care concerns: No Meds Home Medications and Allergies Home Medications ?Medication ?Instructions ?Recorded ?Confirmed ?Type omeprazole 20 mg-sodium 1 cap PO DAILY 02/10/23 11/09/24 History bicarbonate 1.1 gram capsule (Zegerid) acetaminophen 500 mg tablet 1,000 mg PO QID PRN Migraine 05/17/23 11/09/24 History Headache lisinopril 20 mg tablet 20 mg PO DAILY #90 tabs 06/07/24 11/09/24 Rx ergocalciferol (vitamin D2) 1,250 1,250 mcg PO WEEKLY #12 caps 07/06/24 11/09/24 Rx mcg (50,000 unit) capsule (Vitamin D2) cyclobenzaprine 10 mg tablet 10 mg PO TID PRN muscle spasm #30 10/29/24 11/09/24 Rx tabs rosuvastatin 5 mg tablet 5 mg PO DAILY #90 tabs 10/29/24 11/09/24 Rx tirzepatide 7.5 mg/0.5 mL 7.5 mg (0.5 mL) subcut WEEKLY #2 mL 11/28/24 Rx subcutaneous pen injector (Mounjaro) Allergies Allergy/AdvReac Type Severity Reaction Status Date / Time latex Allergy Flushing Verified 12/03/24 06:21 Vital Signs Vital Signs - 24 hr 12/03/24 06:27 Temperature 97.4 F L Pulse Rate 99 Respiratory Rate 20 Blood Pressure 141/95 H Pulse Oximetry 97 Oxygen Delivery Room Air Exam Const: General: cooperative and healthy appearing Resp: Effort & Inspection: normal respiratory effort and able to speak in complete sentences Auscultation: clear to auscultation bilaterally Cardio: Rate: regular rate Rhythm: regular rhythm GI: Inspection: normal to inspection GI Palp: No No hepatosplenomegaly present Auscultation: normal bowel sounds Rectal Exam: deferred Skin: General skin exam: normal color Psych: Appearance: grossly normal Mental Status: mental status grossly normal Assessment and Plan Assessment and plan (1) Screening for colon cancer: Code(s): Z12.11 - Encounter for screening for malignant neoplasm of colon Status: Acute Assessment and Plan: The patient is deemed a good candidate for the procedure. Consent signed. Will proceed.
--- NOTE | 2024-12-03 07:43 | S_PTH ---
PATIENT: Jyotsna Collins LOC: [facility] U#:[id number] AGE/SX: 49/F ROOM: RE12/03/[address]: Matues May MD : 1975 BED: DIS: 12/03/2024 SPEC #: [id number] RECD: 12/03/24 09:56 STATUS: OBED REQ #: [id number] FELICIA: 12/03/24 07:[address]: Mateus May DEPT: [facility] Surgical RECD BY: Sarah Enriquez ENTERED: 12/03/24 10:12 SP TYPE: Surgical OTHR DR: Jennifer Montez DO Tissues: A - Rectal Polyp Procedures: Hematoxylin and Eosin Stain Gross and Microscopic Level 4
[2024-12-03 07:45] VITALS: BP 132/67; PULSE 78; RESP 17; O2SAT 98
[2024-12-03 07:55] VITALS: BP 130/70; PULSE 75; RESP 19; O2SAT 98
[2024-12-03 08:05] VITALS: BP 133/72; PULSE 77; RESP 20; O2SAT 98
== END 2024-12-03 08:24 | disposition home or self-care (01) ==
PROVIDERS: PCP Family Medicine; Referring Provider Family Medicine; Visit Provider Internal Medicine Gastroenterology
PROC: 0DJD8ZZ Inspection of Lower Intestinal Tract, Via Natural or Artificial Opening Endoscopic (ICD-10-PCS; CPT 45378; principal; 2024-12-03 07:30)
DX: Z12.11 Encounter for screening for malignant neoplasm of colon (principal); K62.1 Rectal polyp; K57.30 Diverticulosis of large intestine without perforation or abscess without bleeding; I10 Essential (primary) hypertension; E78.5 Hyperlipidemia, unspecified; E11.9 Type 2 diabetes mellitus without complications; G47.33 Obstructive sleep apnea (adult) (pediatric); F17.210 Nicotine dependence, cigarettes, uncomplicated; E66.01 Morbid (severe) obesity due to excess calories; Z68.42 Body mass index [BMI] 45.0-49.9, adult; Z79.85 Long-term (current) use of injectable non-insulin antidiabetic drugs; Z98.890 Other specified postprocedural states; Z82.49 Family history of ischemic heart disease and other diseases of the circulatory system
CPT/HCPCS: 45385; 82948; 88305; J2003; J2704; J7120

== ENCOUNTER 2025-02-21 07:49 | Outpatient (CLI) | payer OTHER, SELFPAY ==
--- OUTSIDE RECORDS SUMMARY | 2025-02-21 07:52 | XMS_ITS | Patient Health Record ---
Author Organization [facility] – [place], [place] Address [address] [place] [address] Care Team Providers Care Support Team Assoc Name Role Phone Nelsy King Primary Care Provider [phone] Allergies No Known Allergies Reason For Referral No Information Medications Medication SIG (Take, Route, Frequency, Duration) Notes Start Date End Date Status Vitamin D3 125 MCG (5000 UT) as directed Orally Active Zegerid OTC 20-1100 MG 1 capsule on an empty stomach Orally Once a day alternate with nexium Active Saxenda 18 MG/3ML 3mg Subcutaneous daily; Duration: 30 days 03/23/2022 Not-Taking Fish Oil 1200 MG 1 capsule Orally Once a day Active Vilazodone HCl 10 MG 1 tablet with food Orally Once a day; Duration: 30 day(s) 12/16/2021 Not-Taking Magnesium 300 MG 1 capsule with a meal Orally Once a day Active Trulicity 0.75 MG/0.5ML 0.75mg/0.5ml Subcutaneous weekly; Duration: 90 days 12/16/2021 Not-Taking Trelegy Ellipta 100-62.5-25 MCG/INH 1 puff Inhalation Once a day PRN Active Quviviq 50 MG 1 tablet within 30 minutes of bedtime Orally Once a day; Duration: 30 days not started 12/16/2021 Active Naprosyn 500 MG 1 tablet with food or milk as needed Orally every 12 hrs 03/23/2022 Active Flexeril 10 MG 1 tablet at bedtime as needed Orally Once a day PRN Active Ibuprofen 200 MG 4 tablet as needed Orally twice a day (bid) as needed (prn) prn Active Vitamin C 1000 MG 1 tablet Orally Once a day Active Quviviq 50 MG 1 tablet within 30 minutes of bedtime Orally Once a day; Duration: 30 days 12/16/2021 Not-Taking Social History Tobacco Use: Social History Observation Description Date Details (start date - stop date) Current Smoker NA - NA Tobacco Use: Question Answer Notes Are you a: current smoker Problems Problem Type SNOMED Code ICD Code Onset Dates Problem Status W/U Status Risk Notes Problem Morbid obesity (672089437) Morbid obesity (E66.01) Active confirmed Problem Vitamin D deficiency (87038853) Vitamin D deficiency, unspecified (E55.9) Active confirmed Problem Vitamin D deficiency (07128918) Vitamin D deficiency (E55.9) Active confirmed Problem Obstructive sleep apnea syndrome (61121597) AMARI (obstructive sleep apnea) (G47.33) Active confirmed Problem Insulin resistance (196853989) Insulin resistance (E88.81) Active confirmed Problem Peripheral venous insufficiency (93974566) Venous insufficiency (chronic) (peripheral) (I87.2) Active confirmed Problem Obesity (638716459) Obesity (BMI 35.0-39.9 without comorbidity) (E66.9) Active confirmed Problem Body mass index 40+ - severely obese (154589252) Body mass index (BMI) of 40.0-44.9 in adult (Z68.41) Active confirmed Problem Hypothyroidism (32632844) Other specified hypothyroidism (E03.8) Active confirmed Problem Morbid obesity (disorder) (809498116) Morbid (severe) obesity due to excess calories (E66.01) Active confirmed Problem Chronic pain (51421253) Other chronic pain (G89.29) Active confirmed Problem Essential hypertension (20463095) Essential (primary) hypertension (I10) Active confirmed Problem Paresthesia (finding) (96139451) Paresthesia of skin (R20.2) Active confirmed Problem Gastroesophageal reflux disease without esophagitis (626666066) Gastroesophageal reflux disease without esophagitis (K21.9) Active confirmed Problem Insomnia (523831619) Insomnia, unspecified type (G47.00) Active confirmed Problem Bilateral carpal tunnel syndrome (98093519953628740) Bilateral carpal tunnel syndrome (G56.03) Active confirmed Problem Mild intermittent asthma (986320723) Mild intermittent reactive airway disease without complication (J45.20) Active confirmed Problem Morbid obesity (082786461) Obesity, morbid (E66.01) Active confirmed Plan Of Treatment Pending Test Test Name Order Date Hemoglobin A1c 11/02/2018 Foot series - Left 11/02/2018 Insurance Providers Payer Name Payer Address Payer Phone Subscriber Number Group Number Insured Name Patient Relationship to Insured Coverage Start Date Coverage End Date [employer] E [address] [place] [phone] [id number] Jyotsna Collins Self - patient is the insured Medical (General) History Medical History History ICD Code pap 2016 (normal) Surgical History Surgery Date(Month/Year) colposcopy
[2025-02-21 17:21] LABS: Hematocrit 43.7 % (37.0-47.0); Hemoglobin 13.6 g/dL (12.0-15.0); Mean Corpuscular HGB Conc 31.1 g/dl (32-36); Mean Corpuscular Hemoglobin 28.1 pg (26-34); Mean Corpuscular Volume 90.3 fl (80-100); Platelet Count Result 288 k/mm3 (150-375); Red Blood Count 4.84 M/mm3 (4.2-5.4); White Blood Count 10.3 K/mm3 (4.5-10.0)
[2025-02-21 17:27] LABS: Alanine Aminotransferase 17 U/L (6-35); Albumin Level 3.8 g/dL (3.5-5.1); Alkaline Phosphatase 101 U/L (38-126); Anion Gap 5 mmol/L (4-12); Aspartate Amino Transferase 26 U/L (14-36); Bilirubin,Total 0.4 mg/dL (0.2-1.3); Blood Urea Nitrogen 16 mg/dL (7-17); Calcium 9.1 mg/dL (8.4-10.2); Carbon Dioxide 27 mmol/L (22-30); Chloride 103 mmol/L (98-107); Cholesterol 217 mg/dL (0-200); Estimated Glomerular Filt Rate > 60; Glucose 102 mg/dL (65-110); HDL Direct 39 mg/dL; Potassium 4.5 mmol/L (3.4-5.0); Sodium 135 mmol/L (137-145); Total Protein 7.3 g/dL (6.3-8.2); Triglycerides 193 mg/dL (<150)
[2025-02-21 18:00] LABS: Thyroid Stimulating Hormone 2.060 uIU/mL (0.465-4.680)
[2025-02-21 18:02] LABS: Hemoglobin A1C 5.7 % (<5.7)
[2025-02-21 18:25] LABS: MALB Creatinine Ratio 54.6 mg/g (0-30)
== END 2025-02-21 07:50 | disposition home or self-care (01) ==
LOC: ANHGOSHLAB 07:50
PROVIDERS: PCP Family Medicine; Visit Provider Family Medicine
DX: E78.2 Mixed hyperlipidemia (principal); I10 Essential (primary) hypertension; E11.69 Type 2 diabetes mellitus with other specified complication; E66.9 Obesity, unspecified; E55.9 Vitamin D deficiency, unspecified; E66.01 Morbid (severe) obesity due to excess calories; Z68.43 Body mass index [BMI] 50.0-59.9, adult
CPT/HCPCS: 36415; 80053; 80061; 82043; 83036; 84443; 85027

== ENCOUNTER 2025-05-16 15:24 | Outpatient (CLI) | payer OTHER, SELFPAY ==
--- NOTE | ~2025-05-16 | MM_ITS ---
EXAMINATION: MM screening ayan BI w zachariah HISTORY: Screening TECHNIQUE: Craniocaudal and mediolateral oblique 3-D tomosynthesis images were obtained and synthetic 2-D images were generated. CAD analysis was submitted and interpreted. COMPARISON: No prior mammogram is available for comparison at this institution. BREAST PARENCHYMAL COMPOSITION: Not Dense: The breasts are almost entirely fatty. FINDINGS: There are masses in the subareolar location of the right breast. There are masses in the upper outer quadrant of the left breast, middle third. There are no suspicious calcifications or architectural distortion. IMPRESSION: 1. Bilateral breast masses. 2. Additional mammographic views and possible breast ultrasound are recommended. BI-RADS Category 0: Incomplete: Needs additional imaging evaluation. Reviewed, dictated and finalized at location O. [facility] [employer] MARKER IMPRESSION: 1. Bilateral breast masses. 2. Additional mammographic views and possible breast ultrasound are recommended . BI-RADS Category 0: Incomplete: Needs additional imaging evaluation.
--- OUTSIDE RECORDS SUMMARY | 2025-05-16 16:03 | XMS_ITS | Clinical Summary ---
Author Organization [email or web address] Address [address] [place] [address] Care Team Providers Care Bonding Molder Name Role Phone Nelsy King MD Primary Care Provide r Allergies No known active allergies Medications VITAMIN D2 50,000 unit capsule 1 07/22/2014 Active guaifenesin-code ine (GUAIFENESIN AC) 10-100 mg/5 mL liquid Take 10 mL by mouth nightly as needed for cough (cough) for up to 10 doses. 120 mL 0 10/12/2014 Active omeprazole-sodiu m bicarbonate (ZEGERID) 40-1.1 mg-gram per capsule 1 capsule every morning before breakfast. Active norethindrone-et hinyl estradiol (06/18) 1 mg-20 mcg (21)/75 mg (7) tablet Take 1 tablet by mouth daily. Active Social History Tobacco Use Types Packs/Day Years Used Date Smoking Tobacco: Former Tobacco Cessation:Ready to Q uit: No; Counseling Given: Yes Alcohol Use Standard Drinks/Week Comments Not Asked 0 (1 standard drink = 0.6 oz pur e alcohol) Comments No Sex and Gender Information Value Date Recorded Sex Assigned at Not on file Legal Sex Female 10:12 AM EDT Gender Identity Not on file Sexual Orientation Not on file Last Filed Vital Signs Vital Sign Reading Time Taken Comments Blood Pressure 128/79 06/10/2017 5:22 PM [employer] TECH Pulse 87 06/10/2017 5:22 PM [employer] TECH Temperature 36.8 C (98.2 F) 06/10/2017 5:22 PM [employer] TECH Respiratory Rate 18 06/10/2017 5:22 PM [employer] PROCEDURES TECH Oxygen Saturation 98% 06/10/2017 5:22 PM SPECIAL PROCEDURES TECH Inhaled Oxygen Concentration - - Weight 108 kg (238 lb) 06/10/2017 5:22 PM SPECIAL PROCEDURES TECH Height 162.6 cm (5' 4) 06/10/2017 5:22 PM SPECIAL PROCEDURES TECH Body Mass Index 40.85 06/10/2017 5:22 PM SPECIAL PROCEDURES TECH Plan of Treatment Not on file Medical Devices Not on file Care Teams Bonding Molder Relationship Specialty Start Date End Date Nelsy King MD [address] [place] [address] PCP - General Family Medicine 10/12/14
--- OUTSIDE RECORDS SUMMARY | 2025-05-16 16:03 | XMS_ITS | Patient Health Record ---
Author Organization [facility] – [place], [place] Address [address] [place] [address] Care Team Providers Care Stonemason Supervisor Name Role Phone Nelsy King Primary Care Provider Allergies No Known Allergies Reason For Referral [...] W/U Status Risk Notes Problem Morbid obesity (066922415) Morbid obesity (E66.01) Active confirmed Problem Vitamin D deficiency (95019668) Vitamin D deficiency, unspecified (E55.9) Active confirmed Problem Vitamin D deficiency (41879480) Vitamin D deficiency (E55.9) Active confirmed Problem Obstructive sleep apnea syndrome (66111789) AMARI (obstructive sleep apnea) (G47.33) Active confirmed Problem Insulin resistance (862702959) Insulin resistance (E88.81) Active confirmed Problem Peripheral venous insufficiency (54543071) Venous insufficiency (chronic) (peripheral) (I87.2) Active confirmed Problem Obesity (133188959) Obesity (BMI 35.0-39.9 without comorbidity) (E66.9) Active confirmed Problem Body mass index 40+ - severely obese (471096598) Body mass index (BMI) of 40.0-44.9 in adult (Z68.41) Active confirmed Problem Hypothyroidism (09915488) Other specified hypothyroidism (E03.8) Active confirmed Problem Morbid obesity (disorder) (063547248) Morbid (severe) obesity due to excess calories (E66.01) Active confirmed Problem Chronic pain (01780012) Other chronic pain (G89.29) Active confirmed Problem Essential hypertension (58951897) Essential (primary) hypertension (I10) Active confirmed Problem Paresthesia (finding) (16205529) Paresthesia of skin (R20.2) Active confirmed Problem Gastroesophageal reflux disease without esophagitis (364805491) Gastroesophageal reflux disease without esophagitis (K21.9) Active confirmed Problem Insomnia (775889407) Insomnia, unspecified type (G47.00) Active confirmed Problem Bilateral carpal tunnel syndrome (02058189127090084) Bilateral carpal tunnel syndrome (G56.03) Active confirmed Problem Mild intermittent asthma (686629802) Mild intermittent reactive airway disease without complication (J45.20) Active confirmed Problem Morbid obesity (243007190) Obesity, morbid (E66.01) Active confirmed Plan Of Treatment Pending Test Test Name Order Date Hemoglobin A1c 11/02/2018 Foot series - Left 11/02/2018 Insurance Providers Payer Name Payer Address Payer Phone Subscriber Number Group Number Insured Name Patient Relationship to Insured Coverage Start Date Coverage End Date [employer] E [address] [place] [phone] [id number] Jyotsna Collins Self - patient is the insured Medical (General) History Medical History History ICD Code pap 2016 (normal) Surgical History Surgery Date(Month/Year) colposcopy
== END 2025-05-16 15:25 | disposition home or self-care (01) ==
LOC: ANHFOHIMG 15:26
PROVIDERS: PCP Family Medicine; Visit Provider Family Medicine
DX: Z12.31 Encounter for screening mammogram for malignant neoplasm of breast (principal); R92.8 Other abnormal and inconclusive findings on diagnostic imaging of breast
CPT/HCPCS: 77063; 77067